=== PATIENT | female | born 1970 | race African-American/Black ===

== ENCOUNTER → 2017-02-04 | Outpatient (CLI) | payer OTHER ==
--- NOTE | 2017-02-04 08:50 | KCIC ---
ABDOMEN AP Clinical Indication: Right upper quadrant abdominal pain and constipation x2 months, now resolved. Comparison: None. Findings: The visualized lung bases are clear. No dilated loops of bowel are seen. The bowel gas pattern is nonobstructive. There is moderate stool in the colon. There is no radiopaque foreign body or calculus. There is no acute bony abnormality. IMPRESSION: Nonobstructive bowel gas pattern. Electronically signed by: Armani Tubbs MD (02/04/2017 8:46 AM) [id number]
== END | disposition home or self-care (01) ==
LOC: KCIC 08:00
PROVIDERS: ATTEND Family Medicine
DX: R10.9 Unspecified abdominal pain (principal)
CPT/HCPCS: 74020

== ENCOUNTER → 2017-03-19 | Outpatient (CLI) | payer OTHER ==
--- NOTE | 2017-03-19 12:33 | KCIC ---
COMPLETE ABDOMINAL ULTRASOUND Clinical History: Right upper quadrant abdominal pain. Comparison: None. Technique: Sonographic examination of the abdomen was performed and multiple grayscale and color Doppler static images were obtained. Findings: Liver is increased in echogenicity. The echotexture is coarsened. There is decreased through-transmission. The liver measures 16.3 cm. Ultrasound is not sensitive for detecting solid liver lesions. Portal flow is hepatopetal. Pancreas, abdominal aorta, and common bile duct are obscured due to overlying bowel gas. The gallbladder wall is normal. Per report, sonographic Kim sign is negative. There is no cholelithiasis or pericholecystic fluid. The right kidney is normal in echotexture and measures 11.7 cm. The left kidney is normal in echotexture and measures 12.9 cm. Corticomedullary differentiation is preserved. There is no hydronephrosis. The spleen is not enlarged, measuring 12.3 cm. IVC is unremarkable. IMPRESSION: 1. Fatty infiltration of the liver. 2. Due to overlying bowel gas the pancreas, abdominal aorta, and common bile duct are obscured. Electronically signed by: Armani Tubbs MD (03/19/2017 12:28 PM) [id number]
== END | disposition home or self-care (01) ==
LOC: KCIC US 08:37
PROVIDERS: ATTEND Family Medicine
DX: K76.0 Fatty (change of) liver, not elsewhere classified (principal)
CPT/HCPCS: 76700

== ENCOUNTER 2017-08-26 04:59 | Emergency (ER) | payer OTHER | END 2017-08-26 05:20 | disposition home or self-care (01) | LOC: ER 04:59 | DX: H92.01 Otalgia, right ear (principal) | CPT/HCPCS: 99283 ==

== ENCOUNTER → 2019-02-23 | Outpatient (CLI) | payer OTHER ==
[2017-08-26 05:07] VITALS: BP 199/104
[~2019-02-23] MED LIST: AMOX1TAB61 PO; GUAI-108 PO
--- NOTE | 2019-02-23 12:35 | KCIC ---
MRI Lumbar Spine without contrast History: Back pain, left radiculopathy Technique: Multiplanar, multi sequential noncontrast MR imaging was performed of the lumbar spine. Comparison: None Findings: Lumbar vertebral body stature is maintained. AP alignment is within normal limits. There is mild disc desiccation L1-L2 through L4-5 although intervertebral disc spaces adequate. Conus terminates near the superior aspect of L1. There are posterior annular tears L3-4, L2-3, L1-2, T12-L1, also anteriorly at L2-3. L1-L2: There is very minimal disc osteophyte complex. Spinal canal and neural foramina are adequate. L2-L3: There is minimal disc osteophyte complex. There is mild buckling of the ligamentum flavum and facet hypertrophic change. Spinal canal is overall adequate. There is very mild narrowing of the left neural foramen by disc osteophyte complex, right neural foramen adequate. L3-L4: There is minimal disc osteophyte complex. There is a superimposed protrusion with associated annular tear eccentric to the inferior left neural foramen and left extraforaminal region about 4 mm AP by about 15 mm transverse. There is moderate narrowing of the left neural foramen with contact of the undersurface exiting left L3 nerve root in the neural foramen greater distally, also in the proximal extraforaminal region. There is mild narrowing of the right neural foramen. Spinal canal is overall adequate. L4-L5: There is minimal disc osteophyte complex. There is minimal facet degenerative change and buckling of the ligamentum flavum. Spinal canal is adequate. Right neural foramen is adequate. There is mild to moderate narrowing of the more distal left neural foramen by disc osteophyte complex and facet. L5-S1: Spinal canal and neural foramina are adequate. Impression: 1. There is no lumbar spinal stenosis. There is moderate narrowing of the left L4-3-4 neural foramen in part by protrusion contacting the undersurface of exiting left L3 nerve root in the neural foramen and proximal extraforaminal region. There is a lesser degree of narrowing of the left L4-5 neural foramen as described, also minimal narrowing on the left at L2-3. 2. There is multilevel mild spondylosis. Electronically signed by: Darci Oviedo MD (02/23/2019 12:32 PM) [facility]-KCIC1
== END | disposition home or self-care (01) ==
LOC: KCIC MRI 08:58
PROVIDERS: ATTEND Family Medicine
DX: M51.26 Other intervertebral disc displacement, lumbar region (principal); M47.812 Spondylosis without myelopathy or radiculopathy, cervical region; M48.02 Spinal stenosis, cervical region; M25.78 Osteophyte, vertebrae; E11.9 Type 2 diabetes mellitus without complications
CPT/HCPCS: 72148

== ENCOUNTER → 2019-03-10 | Outpatient (CLI) | payer OTHER ==
[2017-08-26 05:07] VITALS: BP 199/104
[~2019-03-10] MED LIST changes: +AMLO5TAB10 PO; +ATOR20TA58 PO; +FURO20TA3 PO; +GLIP5TAB10 PO; +HYDR-2765 PO; +LORA10TA3 PO; +LOSA100T2 PO; +METF10007 PO; +OMEP40CA45 PO; +POLY17PO29 PO
--- NOTE | 2019-03-10 21:46 | PAIN ---
DATE OF SERVICE: 03/10/2019 INITIAL CONSULTATION FOR PAIN CLINIC CHIEF COMPLAINT: Low back and left lower extremity pain. HISTORY OF PRESENT ILLNESS: The patient is a 48-year-old female who presents with history of pain for about 2 years, increased in the last 4 months or so. Pain is in the low back, not as a result of any specific injury or action that she is aware of, but significant pain in the low back radiating to the posterior gluteus, posterolateral thigh, lateral anterior thigh, medial thigh, especially in the mid groin at times and also anterior thigh and anterior knee and anterior and medial lower leg. The patient reports it is worse with walking, standing, especially with climbing stairs or stepping up on a step as well as standing on her own. The patient reports it is better with sitting down, but it can be painful with sitting as well. Awakens her from sleep at least once a night, does not affect her bowel or bladder control, but does affect her ability to walk, which she feels left leg is significantly fatigued and weak. She has stumbled several times the patient reports, but without falling. The patient reports she has had physical therapy in the past, which was not significantly helpful, but this was many years ago. No recent treatments. She is doing exercise on her own, stretching and strengthening. Also, using heat applications on her low back. Has not had any chiropractic treatment or other modalities at this time. The patient is taking hydrocodone, Tylenol, and Aleve, all of which do not been significantly helpful. She continues to take the Aleve. The patient reports that the pain is constant and shooting in the left lower extremity and throbbing and aching across the low back. The patient did have an MRI scan of the lumbar spine showing at L3-L4 superimposed protrusion with associated annular tear centered to the inferior left neural foramen and extra left region about 4 mm, moderate narrowing of left neural foramen with contact at the undersurface of the exiting left L3 nerve root and the neural foramen. L4-L5 shows spinal canal adequate, right neural foramen adequate, [id number] narrowing of the more distal left neural foramen by disk osteophyte complex and facet hypertrophy. The patient rates her disability from 0 to 10, 10 being the worst, is a 7 with family home responsibilities, recreation, social activity, and occupation, 1 with sexual behavior, 3 with self-care, and 1 with life support activities. PAST MEDICAL HISTORY: Significant for type 2 diabetes, hypertension, gastroesophageal reflux, arthritis, frequent UTIs, and sinus infections. PREVIOUS SURGERY: Includes and left ankle surgery. CURRENT MEDICATIONS: Include Augmentin, Mucinex, Cozaar, loratadine, polyethylene glycol, atorvastatin, Lasix, glipizide, omeprazole, metformin, and amlodipine. FAMILY HISTORY: Significant for diabetes and hypertension. SOCIAL HISTORY: The patient does not smoke, drinks alcohol only very rarely, less than twice a year. 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 REVIEW OF SYSTEMS: The patient's review of systems is positive for those items mentioned in history of present illness. All systems reviewed and otherwise negative. It is complete, full, and well documented on the patient's chart. PHYSICAL EXAMINATION: VITAL SIGNS: The patient's blood pressure is 157/104, pulse 85, respirations 18, temperature 98.3 degrees Fahrenheit, height is 5 foot 9 inches, and weight is 353 pounds. GENERAL: The patient is awake, alert, oriented, appropriate, very pleasant demeanor. HEENT: Shows normocephalic, atraumatic. Extraocular movements are intact and symmetrical. Oral cavity: Mucous membranes moist and pink. Dentition is intact. NECK: Shows anterior throat supple without palpable lymphadenopathy noted. Swallow reflex symmetrical. CHEST: Shows normal on inspection. Breath sounds clear to auscultation bilaterally. HEART: Shows S1, S2 clear. No murmurs auscultated. ABDOMEN: Soft, nontender, and nondistended. No palpable organomegaly is noted. No rebound or guarding demonstrated. BACK: Shows spine grossly in the midline. Normal-appearing thoracic kyphosis and slightly flattened lumbar lordotic curvature. Lumbar paraspinous muscle shows symmetrical on inspection with palpation shows some moderate tenderness diffusely bilaterally, but only diffusely without significant radiation. The patient's back shows a normal-appearing thoracic kyphosis and lumbar lordotic curvature. Lumbar paraspinous muscle shows symmetrical on inspection, on palpation shows some moderate tenderness diffusely bilaterally, but only diffusely without significant radiation. The patient's back shows good rotational motion both laterally extension and flexion without significant difficulty. No tenderness over the sacrum and sacroiliac regions. EXTREMITIES: Lower extremities show deep tendon reflexes 1+ in the patellar and tendo calcaneus tendons. Motor exam is approximately 4 on a scale of 5 on the left dorsiflexion, extension, quadriceps, and hamstring and 5/5 on the right. Peripheral pulses are 1+ posterior tibia. No peripheral edema is noted. Lower extremities are warm and dry to touch, equal in color and appearance. Straight leg raise noted to be mildly positive on the left at about 35-40 degrees, but decreased with knee flexion, right side is negative. Gaenslen's and Hussain's maneuvers are negative bilaterally as well. The patient is able to stand, stand on her toes without significant difficulty or loss of balance, walks with a normal-appearing gait, does not appear to favor the right or left lower extremity significantly with ambulation, not using any assistive devices such as canes or walkers to ambulate. SKIN: Shows warm and dry, good turgor. No edema. No sores, rashes, or bruising throughout. IMPRESSION: 1. This is a 48-year-old female with approximate 2-year history, increasing pain over the past few months in the low back, left lower extremity in a radicular fashion following L3-L4 dermatomal distribution. 2. MRI scan of lumbar spine as noted. 3. Type 2 diabetes. 4. Hypertension. 5. Arthritis. 6. Gastroesophageal reflux. PLAN: Options were discussed with the patient including conservative medical management, physical therapies, and interventional techniques. She would like to pursue interventional techniques. We discussed a lumbar epidural steroid injection using description as well as anatomical models to describe the procedure. The patient will wait for preauthorization with her insurance provider. In the meantime, we will continue doing stretching and strengthening exercises as she has been doing and heat applications to the low back. The patient will follow up in approximately 1 week. We will plan on lumbar epidural steroid injection, translaminar approach at the L3-L4 level at that time. ANGEL DENISE MD DR: KARY/devonte JOB#: [id number] / [id number] [facility] MED CURRIE MD
== END ==
LOC: PNCL 09:13
PROVIDERS: ATTEND Anesthesiology
DX: M54.16 Radiculopathy, lumbar region (principal); M79.605 Pain in left leg; I10 Essential (primary) hypertension; E11.9 Type 2 diabetes mellitus without complications; K21.9 Gastro-esophageal reflux disease without esophagitis; M19.90 Unspecified osteoarthritis, unspecified site; F17.220 Nicotine dependence, chewing tobacco, uncomplicated
CPT/HCPCS: G0463

== ENCOUNTER → 2019-03-24 | Outpatient (CLI) | payer OTHER ==
[2017-08-26 05:07] VITALS: BP 199/104
[~2019-03-24] MED LIST changes: +IOHEXOL 180 MG/ML 10 ML VIAL. ONE; +methylPREDNISolone ACETATE 40 MG/ML VIAL. ONE; +methylPREDNISolone ACETATE 80 MG/ML VIAL. ONE
--- NOTE | 2019-03-24 22:15 | PAIN ---
DATE OF SERVICE: 03/24/2019 PROGRESS NOTE FOR PAIN CLINIC DIAGNOSES: Lumbar radiculopathy with lumbar degenerative disk disease. HISTORY OF PRESENT ILLNESS: The patient is a 48-year-old female who returns for followup status post initial evaluation and preauthorization for lumbar epidural steroid injection. She has obtained this now and would like to proceed, still pain in the low back, left lower extremity, mostly in posterior lateral thigh, anterior thigh, medial thigh, medial knee on the left side, worse with walking, standing, changing positions, better with sitting or lying down, does not awaken her from sleep at night. The patient reports pain is a 9 on a scale of 10 at its worst, 7 on average, 4 at its least and is a 7 today. The patient reports it is aching and shooting in the low back and left leg as it was previously. No new motor or sensory deficits, no bowel or bladder incontinence. PHYSICAL EXAMINATION: VITAL SIGNS: The patient's blood pressure 133/85, pulse is 91, respirations are18, temperature 99.2 degrees Fahrenheit, height is 5 feet 9 inches, and weight is 352 pounds. GENERAL: The patient is awake, alert, oriented, appropriate, very pleasant demeanor. HEENT: Shows normocephalic, atraumatic. Extraocular movements are intact and symmetrical. Oral cavity: Mucous membranes moist and pink. Dentition is intact. NECK: Shows anterior throat supple without palpable lymphadenopathy noted. Swallow reflex is symmetrical. CHEST: Shows normal on inspection. Breath sounds are clear bilaterally. HEART: Shows S1, S2 clear. No murmurs auscultated. ABDOMEN: Soft, nontender, nondistended. No palpable organomegaly is noted. No rebound or guarding demonstrated. BACK: Shows spine grossly in the midline. Slight exaggeration of thoracic kyphosis, minor flattening of lumbar lordotic curvature. Lumbar paraspinous muscle shows symmetrical on inspection, on palpation shows some moderate tenderness diffusely, but only diffusely in the middle and lower distribution of paraspinous muscles, but shows good rotational motion both laterally as well as extension and flexion without difficulty. EXTREMITIES: Lower extremities show deep tendon reflexes at 1+ in the patellar and tendo-calcaneus tendons are equal. Motor exam is approximately 4 on a scale 5 on the left and 5/5 on the right with dorsiflexion, extension, quadriceps and hamstring flexion. Peripheral pulses are 1+. No peripheral edema is noted. Options were discussed with the patient. The patient's old chart was reviewed as her current medication regimen updated. Current review of systems updated today as well. We will proceed with a lumbar epidural steroid injection today with fluoroscopic guidance. Risks were again discussed including, but not limited to bleeding, infection, possibility of epidural hematoma, subsequent neurologic compromise, dural puncture, headaches, spinal cord and/or nerve damage, side effects of steroid medication and poor results regarding pain control. The patient understands and wished to proceed. The patient will return to clinic in approximately 2 weeks for followup, was counseled on return appointment, activity level and side effects to be aware of. DIAGNOSES: Lumbar radiculopathy with lumbar degenerative disk disease. PROCEDURE: Lumbar epidural steroid injection, translaminar approach at the L3-L4 level using C-arm fluoroscopic guidance under sterile prep and drape using local anesthetic. MEDICATION INJECTED: A total of 120 mg Depo-Medrol plus 10 mL of preservative-free normal saline and 2 mL of contrast. CONDITION AT DISCHARGE: Stable. The patient tolerated the procedure well, had no complications. ANGEL DENISE MD DR: KARY/devonte JOB#: [id number] / [id number]
== END | disposition home or self-care (01) ==
LOC: PNCL 13:06
PROVIDERS: ATTEND Anesthesiology
DX: M51.16 Intervertebral disc disorders with radiculopathy, lumbar region (principal); Z98.890 Other specified postprocedural states
CPT/HCPCS: 62323; J1030; J1040; Q9965